=== PATIENT | female | born 1990 ===

== ENCOUNTER 2017-11-24 15:27 | Emergency (ER) | payer OTHER ==
[2017-11-24 15:33] VITALS: BMI 23.8
[2017-11-24 15:37] VITALS: RESP 18; TEMP 99; O2SAT 100
[2017-11-24 16:30] LABS: URINE BILIRUBIN NEGATIVE (NEGATIVE); URINE BLOOD NEGATIVE (NEGATIVE); URINE GLUCOSE (UA) NEGATIVE (NEGATIVE); URINE LEUKOCYTE ESTERASE TRACE Leu/uL (NEGATIVE); URINE PROTEIN NEGATIVE mg/dL (<30 mg/dL); URINE UROBILINOGEN 0.2 E.U./dL (<1 E.U./dL)
--- NOTE | 2017-11-24 16:32 | ED PDOC ---
Arrival/HPI - General Chief Complaint: Female Genitourinary Time Seen by Provider: 11/24/17 15:52 Historian: Patient, Spouse - History of Present Illness Narrative History of Present Illness (Text): 11/24/17 16:00 27 y/o F currently 5 months with her LMP on 06/22/17 presenting to the Emergency Department with family member complaining of vaginal discharge. She states she is a recent immigrant from [facility] and arrived 3 weeks ago. She reports that 1 week ago she started noticing greenish foul smelling vaginal discharge. She denies any vaginal bleeding or abdominal pain, but admits to having mild lower back pain. Patient did not have any care in [facility] or [facility]. Upon interrogation, she reports having had 2 different sexual partners within the last 6 months. Patient denies fevers, chills, cough, shortness of breath, chest pain, dyspnea on exertion, abdominal pain, nausea, vomiting, diarrhea, urinary/bowel changes, headache, dizziness, or any other complaint. *Patient is primarily Nauruan speaking and her family member at bedside served as gettering operator* Time/Duration: 1 week Symptom Onset: Sudden Symptom Course: Unchanged Context: Home Past Medical History - Provider Review Nursing Documentation Reviewed: Yes - Travel History Have you recently traveled outside [place] w/in the past 3 mons?: Yes If Yes, travel location?: [facility] - Infectious Disease Hx of Infectious Diseases: None - Psychiatric Hx Substance Use: No - Surgical History Hx Section: Yes (x1) - Anesthesia Hx Anesthesia: Yes Hx Anesthesia Reactions: No Hx Malignant Hyperthermia: No Family/Social History - Physician Review Nursing Documentation Reviewed: Yes Family/Social History: No Known Family HX Smoking Status: Never Smoked Hx Alcohol Use: No Hx Substance Use: No Allergies/Home Meds Allergies/Adverse Reactions: Allergies No Known Allergies Allergy (Verified 11/24/17 15:33) Review of Systems - Physician Review All systems were reviewed & negative as marked: Yes - Review of Systems Constitutional: absent: Fevers, Night Sweats Respiratory: absent: SOB, Cough Cardiovascular: absent: Chest Pain Gastrointestinal: absent: Abdominal Pain, Diarrhea, Nausea, Vomiting Genitourinary Female: Vaginal Discharge. absent: Vaginal Bleeding Musculoskeletal: Back Pain. absent: Neck Pain Neurological: absent: Headache, Dizziness Physical Exam Vital Signs Reviewed: Yes Vital Signs Temp Pulse Resp BP Pulse Ox 10/10/18 15:36 99.0 F 97 H 18 109/73 100 Temperature: Afebrile Blood Pressure: Normal Pulse: Regular Respiratory Rate: Normal Appearance: Positive for: Well-Appearing Mental Status: Positive for: Alert and Oriented X 3 - Systems Exam Head: Present: Atraumatic, Normocephalic Pupils: Present: PERRL Extroacular Muscles: Present: EOMI Conjunctiva: Present: Normal Mouth: Present: Moist Mucous Membranes Neck: Present: Normal Range of Motion Respiratory/Chest: Present: Clear to Auscultation, Good Air Exchange. No: Respiratory Distress, Accessory Muscle Use Cardiovascular: Present: Regular Rate and Rhythm, Normal S1, S2. No: Murmurs Abdomen: No: Tenderness, Distention, Peritoneal Signs Genitourinary/Pelvic Exam: Present: Vaginal Discharge (thick greenish discharge in vaginal orifice and cervical OS). No: Adenexal Tenderness, Cervical Motion Tendernes, Other (No vulvar lesions noted) Back: No: CVA Tenderness, Paraspinal Tenderness Upper Extremity: Present: Normal Inspection. No: Cyanosis, Edema Lower Extremity: Present: Normal Inspection. No: Edema Neurological: Present: GCS=15, CN II-XII Intact, Speech Normal Skin: Present: Warm, Dry, Normal Color. No: Rashes Psychiatric: Present: Alert, Oriented x 3, Normal Insight, Normal Concentration Medical Decision Making ED Course and Treatment: 11/24/17 16:00 Impression: 27 year old female who is and 5 months and is complaining of greenish vaginal discharge that she first noticed 1 week ago. Differential Diagnosis included but are not limited to: STI(Gonorrhea, Chlamydia, Trichamonomiasis) Bacterial vaginosis Vulvovaginitis PID Plan: -- Labs -- Blood work -- Chlamydia RNA labs -- Urinalysis -- Zithromax -- Rocephin -- Flagyl -- Transvaginal US -- Reassess and disposition Prior Visits: Notes and results from previous visits were reviewed. Progress Notes: 11/24/17 16:46 Endocervical swab obtained from pelvic exam sent to the lab. Will treat patient for STI. US shows FHR at 144 bpm with gestational age of 21 weeks & 3 days. Patient notified and aware of US findings. She is advised to follow up in clinic and is given information. She advised to initiate pelvic rest until she is evaluated by - Lab Interpretations I have reviewed the lab results: Yes - RAD Interpretation Narrative RAD Interpretations (Text): 11/24/17 17:57 US: Dictator : Radhika Sanchez MD Findings: There is a single living fetus in cephalic presentation. Amniotic fluid volume is within normal limits. Anterior fundal placenta. The placenta is not previa. There are no adnexal masses or cysts evident. Measurements and calculations: Fetus has a composite sonographic age of 21 weeks 3 days. This calculation is based on the biparietal diameter, head circumference, abdominal circumference, and femur length. Estimated heart rate 144.4 beats per min. Estimated weight 442.5 g. Impression: Single living fetus with a composite sonographic age of 21 weeks 3 days. Estimated heart rate 144.4 beats per min. The study was performed for emergent evaluation, and the whole anatomic survey of the fetus was not performed. This should be performed on an outpatient elective basis as clinically warranted. Radiology Orders: 11/24/17 16:10 TRANSVAGINAL [US] Stat Label Press Operator: Radiologist - Scribe Statement The provider has reviewed the documentation as recorded by the Scribe Zeferino Tapia Provider Scribe Attestation: All medical record entries made by the Scribe were at my direction and personally dictated by me. I have reviewed the chart and agree that the record accurately reflects my personal performance of the history, physical exam, medical decision making, and the department course for this patient. I have also personally directed, reviewed, and agree with the discharge instructions and disposition. Disposition/Present on Arrival - Present on Arrival Any Indicators Present on Arrival: No History of DVT/PE: No History of Uncontrolled Diabetes: No Urinary Catheter: No History of Decub. Ulcer: No History Surgical Site Infection Following: None - Disposition Have Diagnosis and Disposition been Completed?: Yes Diagnosis: UTI (urinary tract infection), Trichimoniasis, Disposition: HOME/ ROUTINE Disposition Time: 17:33 Patient Plan: Discharge Condition: STABLE Discharge Instructions (ExitCare): Asymptomatic Bacteriuria, Trichomoniasis (DC), Sexually-Transmitted Diseases (DC), - The Fifth Month Print Language: YAKUT Prescriptions: Cephalexin [Keflex] 500 mg PO BID 5 Days #10 capsule Referrals: Suzanne Calles MD [Medical Doctor] - Follow up with primary [facility] [place] [Outside] - Follow up with primary Forms: [employer] (Nauruan)
[2017-11-24] MEDS ORDERED: cefTRIAXone (Rocephin) 250 mg Inj IM STA (16:41)
[2017-11-24 16:48] LABS: URINE APPEARANCE CLEAR (CLEAR); URINE COLOR YELLOW (YELLOW)
[2017-11-24 16:58] LABS: HCG,QUALITATIVE URINE POSITIVE (NEGATIVE); URINE EPITHELIAL CELLS 0 - 2 /hpf (0-5); URINE RBC 0 - 2 /hpf (0-2)
[2017-11-24 17:10] LABS: BLOOD UREA NITROGEN 7 mg/dL (7-21); CALCIUM 9.3 mg/dL (8.4-10.5); GFR NON-AFRICAN AMERICAN > 60
[2017-11-24 17:11] LABS: ALB/GLOB RATIO 1.1 (1.1-1.8); ALT/SGPT 20 U/L (7-56); AST/SGOT 30 U/L (14-36)
[2017-11-24 17:25] LABS: URINE BACTERIA SMALL (NEG)
[2017-11-24 17:25] LABS: BASO # 0.01 K/mm3 (0.0-2.0); BASO % 0.2 % (0.0-3.0); EOS # 0.1 (0.0-0.7); EOS % 1.5 % (1.5-5.0); GRAN # 2.5 (1.4-6.5); GRAN % 53.4 % (50.0-68.0); LYMPH # 1.7 (1.2-3.4); LYMPH % 35.7 % (22.0-35.0); MEAN CELL VOLUME 84.2 fl (80.0-105.0); MEAN CORPUSCULAR HEMOGLOBIN 27.2 pg (25.0-35.0); MEAN CORPUSCULAR HGB CONC 32.3 g/dl (31.0-37.0); MEAN PLATELET VOLUME 9.4 fl (7.0-11.0); MONO # 0.4 (0.1-0.6); MONO % 9.2 % (1.0-6.0); RBC 3.68 10^6/uL (3.5-6.1); RED CELL DISTRIBUTION WIDTH 14.9 % (11.5-14.5); WHITE BLOOD COUNT 4.7 10^3/ul (4.5-11.0)
[2017-11-24 17:34] VITALS: BP 111/78; PULSE 89
--- NOTE | 2017-11-24 17:43 | US ---
Indication: 5 months with no care Comparison: None available Technique: Real-time ultrasound was performed through the pelvis. Findings: There is a single living fetus in cephalic presentation. Amniotic fluid volume is within normal limits. Anterior fundal placenta. The placenta is not previa. There are no adnexal masses or cysts evident. Measurements and calculations: Fetus has a composite sonographic age of 21 weeks 3 days. This calculation is based on the biparietal diameter, head circumference, abdominal circumference, and femur length. Estimated heart rate 144.4 beats per min. Estimated weight 442.5 g. Impression: Single living fetus with a composite sonographic age of 21 weeks 3 days. Estimated heart rate 144.4 beats per min. The study was performed for emergent evaluation, and the whole anatomic survey of the fetus was not performed. This should be performed on an outpatient elective basis as clinically warranted.
== END 2017-11-24 18:41 | disposition home or self-care (01) ==
LOC: ED 15:27
DX: O23.42 Unspecified infection of urinary tract in pregnancy, second trimester (principal); A59.9 Trichomoniasis, unspecified; Z3A.21 21 weeks gestation of pregnancy
CPT/HCPCS: 76815; 80053; 81001; 84702; 84703; 85025; 87086; 87491; 87591; 96372; 99284; J0696

== ENCOUNTER 2018-03-23 01:15 | Emergency (ER) | payer MEDICAID ==
[2018-03-23 01:15] VITALS: BMI 23.8
[2018-03-23 01:31] VITALS: TEMP 98.2
[2018-03-23] MEDS ORDERED: Sodium Chloride 0.9% 1,000 ML IV SCH (01:45)
--- NOTE | 2018-03-23 01:54 | ED PDOC ---
Arrival/HPI - General Chief Complaint: Abdominal Pain Time Seen by Provider: 03/23/18 01:31 Historian: Patient - History of Present Illness Narrative History of Present Illness (Text): 03/23/18 01:47 27 year old female A3, with no other significant medical history, presents to the emergency department complaining of abdominal pain, since 22:00 yesterday. Patient informs that she is 40 weeks . Patient informs she has had 1 Csection, 3 regular births, and 3 miscarriages.[id number] Patient informs she also vomited today. Patient denies any vaginal discharge. Patient denies any fever, chills, chest pain, shortness of breath, or any other complaints. Time/Duration: 4-6 hours Symptom Onset: Gradual Symptom Course: Unchanged Quality: Cramping Activities at Onset: Light Context: Home Past Medical History - Provider Review Nursing Documentation Reviewed: Yes - Infectious Disease Hx of Infectious Diseases: None - Reproductive Currently : Yes - Psychiatric Hx Substance Use: No - Surgical History Hx Section: Yes (x1) - Anesthesia Hx Anesthesia: Yes Hx Anesthesia Reactions: No Hx Malignant Hyperthermia: No Family/Social History - Physician Review Nursing Documentation Reviewed: Yes Family/Social History: No Known Family HX Smoking Status: Never Smoked Hx Alcohol Use: No Hx Substance Use: No Allergies/Home Meds Allergies/Adverse Reactions: Allergies No Known Allergies Allergy (Verified 11/24/17 15:33) Review of Systems - Physician Review All systems were reviewed & negative as marked: Yes - Review of Systems Constitutional: absent: Fevers, Night Sweats Respiratory: absent: SOB, Cough Cardiovascular: absent: Chest Pain Gastrointestinal: Abdominal Pain Physical Exam Vital Signs Reviewed: Yes Vital Signs Temp Pulse Resp BP Pulse Ox 03/23/18 01:30 98.2 F 112 H 16 104/61 97 Temperature: Afebrile Blood Pressure: Normal Pulse: Tachycardic Respiratory Rate: Normal Appearance: Positive for: Well-Appearing, Non-Toxic, Comfortable Pain Distress: None Mental Status: Positive for: Alert and Oriented X 3 - Systems Exam Head: Present: Atraumatic, Normocephalic Pupils: Present: PERRL Extroacular Muscles: Present: EOMI Conjunctiva: Present: Normal Mouth: Present: Moist Mucous Membranes Neck: Present: Normal Range of Motion Respiratory/Chest: Present: Clear to Auscultation, Good Air Exchange. No: Respiratory Distress, Accessory Muscle Use Cardiovascular: Present: Regular Rate and Rhythm, Normal S1, S2. No: Murmurs Abdomen: Present: Distention (Consistent with gestation range). No: Tenderness, Peritoneal Signs Genitourinary/Pelvic Exam: Present: Cervical os Closed. No: Vaginal Discharge, Vaginal Bleeding, Cervical Motion Tendernes Back: Present: Normal Inspection Upper Extremity: Present: Normal Inspection. No: Cyanosis, Edema Lower Extremity: Present: Normal Inspection. No: Edema Neurological: Present: GCS=15, CN II-XII Intact, Speech Normal Skin: Present: Warm, Dry, Normal Color. No: Rashes Psychiatric: Present: Alert, Oriented x 3, Normal Insight, Normal Concentration Medical Decision Making ED Course and Treatment: 03/23/18 01:56 Patient was accepted for transfer to Dr Johnson at [facility]. - Medication Orders Current Medication Orders: Sodium Chloride (Sodium Chloride 0.9%) 1,000 mls @ 100 mls/hr IV .Q10H CHUN - Scribe Statement The provider has reviewed the documentation as recorded by the Mina Zheng Provider Scribe Attestation: All medical record entries made by the Scribe were at my direction and personally dictated by me. I have reviewed the chart and agree that the record accurately reflects my personal performance of the history, physical exam, medical decision making, and the department course for this patient. I have also personally directed, reviewed, and agree with the discharge instructions and disposition. Disposition/Present on Arrival - Present on Arrival Any Indicators Present on Arrival: No History of DVT/PE: No History of Uncontrolled Diabetes: No Urinary Catheter: No History of Decub. Ulcer: No History Surgical Site Infection Following: None - Disposition Have Diagnosis and Disposition been Completed?: Yes Diagnosis: Term , Abdominal pain Disposition: Transfer [facility] Disposition Time: 02:05 Condition: GOOD Forms: [employer] (Serbian)
[2018-03-23 01:56] VITALS: BP 118/62; PULSE 108; RESP 17; O2SAT 98
[2018-03-23 02:08] LABS: ALB/GLOB RATIO 1.1 (1.1-1.8); ALBUMIN 3.9 g/dL (3.0-4.8); ALT/SGPT 10 U/L (7-56); AST/SGOT 24 U/L (14-36); BLOOD UREA NITROGEN 9 mg/dL (7-21); CALCIUM 9.2 mg/dL (8.4-10.5); GFR NON-AFRICAN AMERICAN > 60; LIPASE 70 U/L (23-300)
[2018-03-23 02:11] LABS: MEAN CELL VOLUME 82.8 fl (80.0-105.0); MEAN CORPUSCULAR HEMOGLOBIN 26.3 pg (25.0-35.0); MEAN CORPUSCULAR HGB CONC 31.7 g/dl (31.0-37.0); MEAN PLATELET VOLUME 9.9 fl (7.0-11.0); RBC 4.19 10^6/uL (3.5-6.1); RED CELL DISTRIBUTION WIDTH 17.8 % (11.5-14.5); WHITE BLOOD COUNT 5.2 10^3/uL (4.5-11.0)
== END 2018-03-23 01:53 | disposition short-term general hospital (02) ==
LOC: ED 01:15
DX: O26.893 Other specified pregnancy related conditions, third trimester (principal); R10.9 Unspecified abdominal pain; Z3A.40 40 weeks gestation of pregnancy